=== PATIENT | male | born 1985 | race Caucasian/White ===

== ENCOUNTER 2023-07-01 23:31 | Emergency (ER) | payer SELFPAY ==
[~2023-07-01] VITALS: Ht 185.4 cm; Wt 90.0 kg
[2023-07-01 23:39] VITALS: BP 145/87; PULSE 116; RESP 16; TEMP 98.8; O2SAT 96
[2023-07-02] MEDS ORDERED: LORAZEPAM 0.5MG TABLET PO ONE (00:30)
== END 2023-07-02 01:55 | disposition home or self-care (01) ==
LOC: ER 07-02 00:05
DX: F12.10 Cannabis abuse, uncomplicated (principal); F41.9 Anxiety disorder, unspecified; J45.909 Unspecified asthma, uncomplicated; F32.9 Major depressive disorder, single episode, unspecified
CPT/HCPCS: 99283